=== PATIENT | female | born 1950 | race Caucasian/White ===

== ENCOUNTER → 2019-03-13 | Outpatient (CLI) | payer MEDICARE, OTHER ==
--- NOTE | 2019-03-13 13:12 | Diagnostic Imaging Report ---
INDICATION: Right thyroid nodule. FINDINGS: Sonography guidance was provided for Dr. Lorenzo for right thyroid nodule FNA. A total of 3 passes were made into the solid nodule in the right lobe. IMPRESSION: Sonographic guidance for Dr. Lorenzo for right thyroid FNA. Dictated by: Dictated on workstation # [id number]
== END ==
LOC: RAD 09:15
PROVIDERS: ATTEND Otolaryngology Otolaryngology/Facial Plastic Surgery
DX: E04.1 Nontoxic single thyroid nodule (principal)
CPT/HCPCS: 76942

== ENCOUNTER → 2023-04-24 | Outpatient (CLI) | payer MEDICARE, OTHER ==
[~2023-04-24] VITALS: Ht 165.1 cm; Wt 77.3 kg
[~2023-04-24] MED LIST: LIDOCAINE 1% INJ 10 ML VIAL INJ ONE
--- NOTE | 2023-04-24 12:55 | Diagnostic Imaging Report ---
INDICATION: Left thyroid nodule. Patient presents for ultrasound guided fine needle aspiration. Patient was brought to the procedure room placed on table in the supine position. Ultrasound imaging of the left neck was performed to evaluate appropriate entry site. Left neck was then prepped and draped in the usual sterile fashion. Small amount 1% lidocaine was utilized for local anesthesia. 4 passes were made into the dominant solid nodule left lobe of thyroid utilizing 25-gauge needles and fine-needle aspiration technique. Needle was removed and hemostasis was obtained. Patient tolerated the procedure well and left the department in stable condition. IMPRESSION: Successful ultrasound-guided fine-needle aspiration of the dominant solid nodule left lobe of thyroid. Pathology results are currently pending. Dictated by: Dictated on workstation # [id number]
== END ==
LOC: RAD 09:53
PROVIDERS: ATTEND Otolaryngology Otolaryngology/Facial Plastic Surgery
DX: E04.1 Nontoxic single thyroid nodule (principal)